=== PATIENT | female | born 1955 | race Caucasian/White ===

== ENCOUNTER 2018-07-18 11:08 | Inpatient (IN) | payer BC ==
--- NOTE | 2018-07-16 08:50 | HPE ---
DATE OF PROPOSED ADMISSION: 07/18/2018 ATTENDING PHYSICIAN: Dr. Moura. CHIEF COMPLAINT: Pain and numbness her right upper extremity with gait disturbance, cervical myelopathy. HISTORY: This is a pleasant 62-year-old female patient who presents today for history and physical for her ongoing symptoms secondary to a fall in February. She sustained a fall, developed pain and numbness in the right upper extremity, gait disturbance and was noted on MRI to have cervical myelopathy. She failed to improve with conservative management. She was seen and evaluated by Dr. Moura who elected for surgery for her persistent symptoms. She has consented for anterior cervical decompression at C4-5 and C5-6 with a partial corpectomy at C5-6. Her MRI is consistent with cervical myelopathy and severe spinal stenosis at 4-5, and lesser degree of stenosis at 5-6 with foraminal stenosis minimally at 6-7. X-rays notable for multilevel degenerative changes with loss of disc height most notably at C4-5 and 5-6 some decreased disc space at 6-7. ALLERGIES: No true known current drug allergies. With kt inhibitors she does have a cough and bloating. CURRENT MEDICATIONS: - amlodipine 5 mg one tablet once per day - Lasix 20 mg one to two tablets as needed - irbesartan 300 mg one tablet once per day - metoprolol extended release 100 mg one tablet once per day - pravastatin 40 mg one tablet once per day - Tricor 145 mg one tablet once per day PAST SURGICAL HISTORY: Colonoscopy done in 2008. She also had a hysterectomy and a partial removal of her ovaries. MEDICAL CONDITIONS INCLUDE: Cervical spinal stenosis C4-5 and C5-6. Numbness in the right upper extremity. Gait disturbance. Hypertension. Elevated cholesterol. Psoriasis. FAMILY HISTORY: Noncontributory. SOCIAL HISTORY: She does not smoke. She occasionally uses alcohol. REVIEW OF SYSTEMS: Denies fever or chills. Denies chest pain, shortness of breath or cough. Denies difficulty breathing. Denies abdominal pain. Denies nausea or vomiting. Has persistent pain radiating to the right upper extremities, difficulty with ambulation. She has had some overflow incontinence noted over the last four or five months or so. No fecal incontinence. No urinary retention. PHYSICAL EXAM TODAY: Reveals an alert female patient. She ambulates with the use of a quad cane. Mood and affect appropriate for this situation. Neck is supple without adenopathy. Lungs are clear to auscultation without rales or wheeze. Heart: Regular rate and rhythm. Abdomen: Bowel sounds are tender. Examination of the cervical spine reveals no tenderness along the posterior aspect of the cervical spine. Spurling's is negative. Garcia's is positive bilaterally. There is notable weakness in the right upper extremity particularly in the biceps and triceps. There is three beats of clonus on the right, two beats of clonus on the left. Deep tendon reflexes are 2 at the right ankle, 1 at the left ankle, 3 at the knees bilaterally, 3+ at the right triceps, 1 at the left triceps, biceps are absent bilaterally, brachial radialis are absent bilaterally. Gait is 1 based on exam. CURRENT VITAL SIGNS: Blood pressure 132/80, respirations 19, pulse 54, height 5.7, weight 266 pounds, temperature 98.9. IMPRESSION: Cervical spinal stenosis most notably at C5-6, C4-5. Degenerative disc disease primarily at C4-5, C5-6 and C6-7 as well as cervical myelopathy at 4-5. PLAN: She has consented by Dr. Moura for an anterior cervical decompression and fusion at C4-5 and C5-6 with a partial corpectomy. We will use a donor bone graft and metal instrumentation. BENITA
[~2018-07-18] VITALS: Ht 172.7 cm; Wt 120.6 kg
[~2018-07-18 11:08] MED LIST: AMLO5TAB6 PO; BACITRACIN PWD 50,000 UNITS VIAL As Ordered ONE; BUPIVACAINE/EPIN 0.25% 30 ML VIAL As Ordered ONE; FENO145T13 PO; FURO20TA2 PO; GLYCOPYRROLATE INJ 0.2 MG/ML 2 ML VIAL As Ordered ONE; IRBE300T10 PO; LIDOCAINE 2% INJ 100 MG/5 ML SDV (FOR ANES.) As Ordered ONE; LIDOCAINE W/EPINEPHRINE 1% 20ML VIAL As Ordered ONE; METO1TAB33 PO; MIDAZOLAM INJ 2 MG/2 ML VIAL (J2250) As Ordered ONE; NEOSTIGMINE 10 MG/10 ML VIAL (J2710) As Ordered ONE; ONDANSETRON 4MG/2ML VIAL (J2405) As Ordered ONE; PRAV40TA2 PO; PROPOFOL 200 MG/20 ML VIAL As Ordered ONE; REMIFENTANIL 1MG 3ML VIAL As Ordered ONE; ROCURONIUM BROMIDE 50 MG/5 ML VIAL As Ordered ONE; THROMBIN SOLN 20,000 UNITS KIT As Ordered ONE; dexameTHASONE 4 MG/ML 1ML VIAL (J1100) As Ordered ONE; fentaNYL 100 MCG/2 ML INJECTION (J3010) As Ordered ONE
[2018-07-18 12:03] LABS: HEMATOCRIT 49.5 % (36.0-47.0); HEMOGLOBIN 16.3 g/dl (12.0-15.5); MEAN CORPUSCULAR HEMOGLOBIN 27.9 pg (27.0-33.0); MEAN CORPUSCULAR HGB CONC 32.9 g/dl (32.0-36.5); MEAN CORPUSCULAR VOLUME 84.6 fl (80.0-96.0); PLATELET COUNT, AUTOMATED 282 10^3/uL (150-450); RED BLOOD COUNT 5.85 10^6/uL (4.00-5.40); WHITE BLOOD COUNT 7.4 10^3/uL (4.0-10.0)
[2018-07-18] MEDS ORDERED: PERCOCET 5MG/325MG TAB As Ordered ONE (12:06)
[2018-07-18] MEDS ORDERED: ceFAZolin 2 GM/D5W 50 ML IV BAG (J0690 PER 500MG) As Ordered ONE (12:07)
[2018-07-18] MEDS ORDERED: ceFAZolin 1GM INJ (J0690 PER 500MG) As Ordered ONE ×2 (12:07→12:08)
[2018-07-18] MEDS ORDERED: GABAPENTIN 300 MG CAP PO ONE (12:15)
[2018-07-18] MEDS ORDERED: PERCOCET 5MG/325MG TAB PO ONE (12:15)
[2018-07-18] MEDS ORDERED: ceFAZolin SOD 1 GM in D5W MINI-BAG PLUS 50 ML IV ONE (12:15)
[2018-07-18] MEDS ORDERED: LR 1,000 ML IV ONE (12:15)
[2018-07-18 12:30] LABS: BLOOD UREA NITROGEN 15 MG/DL (7-18); CALCIUM LEVEL 9.9 MG/DL (8.8-10.2); CARBON DIOXIDE LEVEL 29 MEQ/L (21-32); CHLORIDE LEVEL 103 MEQ/L (98-107); CREATININE FOR GFR 0.86 MG/DL (0.55-1.30); GLOMERULAR FILTRATION RATE > 60.0 (>45); GLUCOSE, FASTING 119 MG/DL (70-100); POTASSIUM SERUM 3.9 MEQ/L (3.5-5.1); SODIUM LEVEL 140 MEQ/L (136-145)
[2018-07-18] MEDS ORDERED: methylPREDNISolone 500 MG, VIAL MATE ADAPTER 1 EACH in D5W 250 ML IV ONE (12:30)
[2018-07-18] MEDS ORDERED: ROCURONIUM BROMIDE 50 MG/5 ML VIAL As Ordered ONE ×2 (15:01→17:16)
[2018-07-18] MEDS ORDERED: PHENYLephrine HCL 500 MCG/5 ML (100MCG/ML) SYRINGE (J2370) As Ordered ONE (15:02)
[2018-07-18] MEDS ORDERED: PHENYLEPHRINE INJ 10MG/ML VIAL (J2370) As Ordered ONE (15:02)
[2018-07-18] MEDS ORDERED: ePHEDrine SULFATE 25 MG/5 ML(5MG/ML) SYRINGE As Ordered ONE (15:02)
[2018-07-18] MEDS ORDERED: REMIFENTANIL 1MG 3ML VIAL As Ordered ONE ×2 (15:42→16:46)
[2018-07-18] MEDS ORDERED: LR 1,000 ML IV SCH (18:30)
[2018-07-18] MEDS ORDERED: ONDANSETRON 4MG/2ML VIAL (J2405) IV PRN (18:30)
[2018-07-18] MEDS ORDERED: PERCOCET 5MG/325MG TAB PO PRN ×3 (18:30→18:45)
[2018-07-18] MEDS ORDERED: HYDROMORPHONE HCL 0.5 MG/ 0.5 ML SYRINGE (J1170 PER 1) IV PRN ×2 (18:30→18:45)
[2018-07-18] MEDS: fentaNYL 100 MCG/2 ML INJECTION (J3010) IV PRN ×4 (18:36→19:04)
[2018-07-18] MEDS ORDERED: PROMETHAZINE INJ 25 MG/ML VIAL (J2550) IV PRN (18:45)
[2018-07-18] MEDS ORDERED: ACETAMINOPHEN TAB 650MG DOSE (2X325MG) PO PRN (18:45)
[2018-07-18 20:00] VITALS: BP 147/98
[2018-07-18 20:30] VITALS: BP 154/100
[2018-07-18 21:00] VITALS: BP 142/95; O2SAT 96
[2018-07-18] MEDS ORDERED: FENOFIBRATE 145 MG TAB (TRICOR) PO SCH (21:00)
[2018-07-18] MEDS ORDERED: PRAVASTATIN 20 MG TAB PO SCH (21:00)
[2018-07-18 22:00] VITALS: BP 142/96
[2018-07-18 23:00] VITALS: BP 147/94
[2018-07-18] MEDS: D5W/LR 1,000 ML IV SCH (23:01)
[2018-07-19] VITALS: BP 135/92
[2018-07-19 02:00] VITALS: BP 141/87
[2018-07-19] MEDS: D5W/LR 1,000 ML IV SCH (04:12)
[2018-07-19 06:00] VITALS: BP 137/83
[2018-07-19] MEDS ORDERED: PERC5TAB12 PO (06:34)
[2018-07-19 08:04] VITALS: BP 137/83
--- NOTE | 2018-07-19 08:23 | REP ---
CERVICAL SPINE, TWO VIEWS: HISTORY: Spinal stenosis. Two portable lateral radiographs were obtained. The first radiograph demonstrates a metal probe overlying the C5-6 intervertebral disc. The second radiograph demonstrates the patient to be status post C4 to C6 anterior spinal fusion. A fixation plate and bone graft material are present. There is anatomic alignment. IMPRESSION: The patient is status post C4 to C6 anterior spinal fusion. There is anatomic alignment. Electronically Signed by Cody Mckeon MD 07/19/2018 08:24 A
[2018-07-19] MEDS ORDERED: METAMUCIL (PSYLLIUM) PACKET PO SCH (09:00)
[2018-07-19] MEDS ORDERED: METOPROLOL SUCC (TopROL XL) 100MG *XL* TAB PO SCH (09:00)
[2018-07-19] MEDS ORDERED: FUROSEMIDE 20 MG TAB PO SCH (09:00)
[2018-07-19] MEDS ORDERED: amLODIPine 5 MG TAB PO SCH (09:00)
[2018-07-19] MEDS ORDERED: IRBESARTAN 150 MG TAB PO SCH (09:00)
--- NOTE | 2018-07-19 12:16 | RO ---
DATE OF PROCEDURE: 07/18/2018 PREOPERATIVE DIAGNOSIS: Cervical myelopathy secondary to cervical spinal stenosis at C4-5 and C5-6. POSTPROCEDURE DIAGNOSIS: Cervical myelopathy secondary to cervical spinal stenosis at C4-5 and C5-6. PROCEDURE: Partial corpectomy C4-5 and C5-6, including debridement of disk osteophyte core complex, partial corpectomy of the vertebral body to allow adequate decompression of her severely arthritic cervical spine, exposure of the thecal sac and decompression of thecal sac and nerve roots and removal of the posterior longitudinal ligament, as well as posterior vertebral body corpus to accomplish decompression of the cervical spinal stenosis causing myelopathy at C4-5, additional level at C5-6, cervical fusion at C4-5 and additional level at C5-6. Use of structural allograft for spine surgery at C4-5 and C5-6. The application of anterior cervical instrumentation C4, C5 and C6. A 22 modifier was applied to this procedure due to the patient's excessive BMI of 43.3 significantly increasing the time and difficulty of this procedure, time to complete the procedure increased by approximately 50% because of body mass index of 43.3, weight of 273 pounds. SURGEON: Dwight Moura MD [employer] ATTENDANT: JESSICA Tompkins ANESTHESIA: General endotracheal. ESTIMATED BLOOD LOSS: 30 mL, replaced with crystalloid. COMPLICATIONS: No complications. COMPONENTS UTILIZED: DePuy [place] plate size 28 mm, 15 and 14 mm screws and a single 14 mm rescue screw utilized at C6 level on the right, structural allograft size 5 x 7 at C4-5 and size 4 x 6 at C5-6. INDICATIONS: The patient has cervical myelopathy affecting the upper and lower extremities, effectively grade quadriparesis as a result of for cervical spinal stenosis and symptoms ongoing since February, including gait disturbance and weakness in the right lower extremity, as well as bilateral and predominantly right upper extremity findings. Consent reviewed in detail with the patient, including marge discussion of the pathology involved, the procedure proposed, alternatives, including doing nothing, fusion surgery at two additional levels, risks including but not limited to pain, failure, infection, paralysis, incomplete relief, need for more surgery, infection, hoarseness, swallowing trouble and other issues. The patient agreed to proceed. OPERATIVE COURSE: Identified in the holding area, site and side verified brought to the operating room. General endotracheal anesthesia was administered. She was positioned with a bump between the shoulder blades. Shoulders taped to the side, head halter traction with 7 pounds applied. Positioning and draped took significantly more time because of the patient's increased body habitus. The incision was outlined with a marking pen. Once I and the development trainer were comfortable with the patient's positioning, she was sterilely prepped and draped. The line of the incision was infiltrated with 1% lidocaine with epinephrine. I utilized 3.5 loupe magnification during the procedure. Mr. Jones stood on the patient's left and I stood on the patient's right for this right-sided approach. Incision was made with a 10 blade knife, developed down through skin, subcuticular tissues to the platysma musculature. The platysma was elevated and divided sharply using tenotomy scissors and bipolar cautery. The patient seemed to have significant fibrosis deep to the platysma muscle. This is likely associated with her body habitus and potentially reflux condition. This significantly contributory towards a long careful dissection. Next, the external jugular vein was exposed and tied off using #2-0 Vicryl. The vein was then divided. The omohyoid was identified. The sternocleidomastoid was identified. Dissection continued superior to the omohyoid. The carotid sheath was identified. Dissection continued medial to the carotid sheath. Anterior vertebral column was identified. Prevertebral fascia was elevated in several leaves exposing the disk osteophyte complexes at C4-5 and C5-6. Radiographically, there is complete collapse of the disk space at C4-5 and near complete collapse of the disk space at C5-6. A bayonet spinal needle was placed at the C5-6 level and a cross-table lateral x-ray was now taken to verify our level in position. Dissection continued. I utilized Bovie cautery to elevate the medial border of the longus coli musculature. I utilized [place] and [place] to remove large disk osteophyte complex in the anterior vertebral column and running into the longus coli musculature at both levels bilaterally. Next, I placed distraction pins at C4-5. I elected to do C4-5 as the first level because it was the most stenotic level where we appreciated significant myelopathy. Distraction pins were utilized to distract the vertebral bodies. Pituitaries were utilized to remove desiccated disk material at C4-5, this followed by the use of curved curettes to remove additional cartilaginous end plates, followed by the oval bur to remove the inferior corpus of C4 and superior corpus of C5 and to allow dissection to continue down to the uncinate processes and posterior longitudinal ligament, removing vertebral bony corpus from these areas. Next, once the posterior longitudinal ligament was exposed, Mr. Jones utilized suction while I utilized #1 and 2 Kerrisons, as well as curved curettes to remove the posterior longitudinal ligament at C4-5. There was significant disk material, especially bulging posterolaterally on the right side and this was removed using [place] pituitaries. Once this was accomplished, we inspected the partial corpectomy. I then utilized a 5 x 7 and a 6 x 8 rasp. We utilized a size 5 x 7 and 6 x [address] sound and elected to place a size 5 x 7 graft to avoid over distraction. Next, the 5.7 graft was obtained, soaked in bacitracin solution and then implanted and tamped into place. Next, distraction pin was removed at C4 and the shadow line retractor was then removed. Dissection continued exposing again C5-6. The shadow line retractor and distraction pin was placed at the C6 level and it distracted across C5-6. In a similar fashion, the additional level at C5-6 was approached removing disk material, cartilaginous endplates and inferior endplate, contouring of C5 was accomplished and superior endplate of C6, contouring debridement of uncinate processes of the vertebral body was accomplished. On the right at C5-6 level in the lateral recess, I did encounter significant free hard osteophyte and this was teased free with a curved curette and removed using the back of pituitary. With the posterior longitudinal ligament also removed using #1 and 2 Kerrisons, as well as curved curettes exposing the thecal sac. Once the C5-6 level was debrided and the thecal sac was exposed and the compression was verified, I then irrigated, utilized rasps a size 4 x 6, the rasp seemed to fit appropriately, a size 4 x 6 sound seemed to fit appropriately. We selected a size 4 x 6 graft and this graft was prepared by soaking in high con bacitracin solution and then implanted. Once the graft was tamped into place, Maximdee help to expose her using S retractors, and I utilized the oval bur to further contour the anterior vertebral body corpus, removing the large osteophyte formation of the anterior corpus at C5-C6 and C4 to allow flush placement of the anterior instrumentation. Next, I trialed a size 32 and a size 28 plate. The size 28 plate seemed to fit appropriately and I then fixed the plate to the anterior corpus of C4 and C6 . I verified the position of the plate and placed the remaining screws at C5. They were drilled with a 12 mm drill and the drill guide followed by placement. The inferior right C6 screw had a difficult purchase and I elected for a size 14 mm larger diameter rescue screw which fit appropriately and held bone. Next, all locking devices were engaged. Irrigation was accomplished. No active bleeding was appreciated. Next, at this stage, a cross-table lateral was taken to verify plate and graft placement. Next, once this was accomplished all retractors and had been removed, the patient's wound was closed in layer fashion, including the platysma, deep dermis and use of Dermabond on the skin wound. Next, she was then extubated and moved to the recovery room in good condition. Immediately in the recovery room, the patient was noted to have an improvement in her right arm symptoms, although she still had the persistent preexisting weakness in the right lower extremity from the cervical myelopathy. This patient was placed in postoperatively an [place] collar, which will be worn in the perioperative period. Next, Elliot Robert was present and participated in the entirety of this case. For further details, please refer to medical record.
--- NOTE | 2018-07-21 15:04 | DSES ---
DATE OF ADMISSION: 07/18/2018 DATE OF DISCHARGE: 07/19/2018 DISCHARGE DIAGNOSIS: Right upper extremity pain and weakness and lower extremity weakness secondary to cervical myelopathy status post anterior cervical decompression and fusion at C4-5 and C5-6 with partial corpectomy at C4-5 and C5-6. HISTORY: This is a pleasant, 62-year-old female with progressively worsening right upper extremity pain and weakness and lower extremity weakness due to cervical spinal stenosis. She had failed to improve with conservative treatment. She elected for surgery for her continued symptoms. PROCEDURE PERFORMED: Anterior cervical decompression and fusion (ACDF) C4-5 and C5-6 with partial corpectomy at C4-5 and C5-6. HOSPITAL COURSE: The patient was admitted on the day of surgery and underwent anterior cervical decompression and fusion at C4-5 and C5-6 with partial corpectomy at C4-5 and C5-6 that was without complications. Her hospital course was without complications. On the day of discharge, the patient was doing well. She was in an [place] collar, will use oral medications for pain control and she will resume preoperative medications and diet. She will also follow in 2 weeks in the office for wound check. Please refer to the medical record for further details.
== END 2018-07-19 10:50 | disposition home or self-care (01) | DRG 321 ==
LOC: M OR 11:26 → M MS5PR 19:35
PROVIDERS: ADMIT Orthopaedic Surgery; ATTEND Orthopaedic Surgery
PROC: 0RB30ZZ Excision of Cervical Vertebral Disc, Open Approach (ICD-10-PCS; 2018-07-18)
PROC: 0RG20K0 Fusion of 2 or more Cervical Vertebral Joints with Nonautologous Tissue Substitute, Anterior Approach, Anterior Column, Open Approach (ICD-10-PCS; principal; 2018-07-18 13:00)
DX: M50.021 Cervical disc disorder at C4-C5 level with myelopathy (principal); I10 Essential (primary) hypertension; M48.02 Spinal stenosis, cervical region; R26.89 Other abnormalities of gait and mobility; E78.2 Mixed hyperlipidemia; L40.9 Psoriasis, unspecified; R73.03 Prediabetes; M50.323 Other cervical disc degeneration at C6-C7 level; M50.322 Other cervical disc degeneration at C5-C6 level; M50.321 Other cervical disc degeneration at C4-C5 level; N39.490 Overflow incontinence; Z79.899 Other long term (current) drug therapy

== ENCOUNTER → 2018-09-30 | Outpatient (CLI) | payer BC ==
[~2018-09-30] MED LIST changes: -BACITRACIN PWD 50,000 UNITS VIAL As Ordered ONE; -BUPIVACAINE/EPIN 0.25% 30 ML VIAL As Ordered ONE; -GLYCOPYRROLATE INJ 0.2 MG/ML 2 ML VIAL As Ordered ONE; -LIDOCAINE 2% INJ 100 MG/5 ML SDV (FOR ANES.) As Ordered ONE; -LIDOCAINE W/EPINEPHRINE 1% 20ML VIAL As Ordered ONE; -MIDAZOLAM INJ 2 MG/2 ML VIAL (J2250) As Ordered ONE; -NEOSTIGMINE 10 MG/10 ML VIAL (J2710) As Ordered ONE; -ONDANSETRON 4MG/2ML VIAL (J2405) As Ordered ONE; +PERC5TAB12 PO; -PROPOFOL 200 MG/20 ML VIAL As Ordered ONE; -REMIFENTANIL 1MG 3ML VIAL As Ordered ONE; -ROCURONIUM BROMIDE 50 MG/5 ML VIAL As Ordered ONE; -THROMBIN SOLN 20,000 UNITS KIT As Ordered ONE; -dexameTHASONE 4 MG/ML 1ML VIAL (J1100) As Ordered ONE; -fentaNYL 100 MCG/2 ML INJECTION (J3010) As Ordered ONE
--- NOTE | 2018-09-30 14:57 | REP ---
BILATERAL LOWER EXTREMITY DUPLEX DOPPLER VENOUS ULTRASOUND WITH EVALUATION FOR VENOUS REFLUX: Real-time compression and duplex Doppler interrogation of the bilateral lower extremity deep venous systems is performed. Bilaterally, common femoral, superficial femoral and popliteal veins are fully compressible with transducer pressure and demonstrate normal spontaneous and phasic flow without evidence of deep venous thrombosis. Evaluation for venous reflux on the right does not demonstrate any evidence of reflux in the deep venous system. There is an anterior accessory greater saphenous vein present without reflux. There is no reflux in the portion of the greater saphenous vein, which measures 8 mm at the saphenofemoral junction, 5 mm at the mid thigh and 6 mm at the knee. There is no reflux in the lesser saphenous vein which measures 3 mm. Evaluation for venous reflux on the left demonstrates no evidence of reflux in the deep vein system. There is an anterior accessory greater saphenous vein present without reflux. There is no reflux in any portion of the greater saphenous vein, which measures 8 mm at the saphenofemoral junction and 5 mm at the mid thigh and knee. Lesser saphenous vein measures 3 mm without reflux. Electronically Signed by Adalid Ramey MD 09/30/2018 04:19 P
== END ==
LOC: M RAD 09:51
PROVIDERS: ATTEND Surgery Vascular Surgery
DX: I83.893 Varicose veins of bilateral lower extremities with other complications (principal)

== ENCOUNTER → 2018-10-16 | Outpatient (CLI) | payer BC ==
--- NOTE | 2018-10-16 11:21 | REP ---
Bilateral lower extremity arterial Doppler ultrasound: History: Peripheral vascular disease. Findings: Ankle brachial indices could not be obtained due to noncompressible vessels bilaterally. A premature ventricular contraction is recorded on the left superficial femoral artery tracing. There is no evidence of significant stenosis on either side. Right lower extremity arterial Doppler velocity chart: CF A 130 cm/S Profunda 56 Proximal SFA 133 Mid SFA 127 Distal SFA 123 Popliteal 61 Proximal AT A 56 Tibioperoneal trunk 77 Proximal ASSISTANT MANAGER QUALITY MANAGEMENT 58 Distal ASSISTANT MANAGER QUALITY MANAGEMENT 86 Distal AT A 86 Left lower extremity arterial Doppler velocity chart: CF A 110 Profunda 65 Proximal SFA 151 Mid SFA 131 Distal SFA 128 Popliteal 64 Proximal AT A 48 Tibioperoneal trunk 96 Proximal ASSISTANT MANAGER QUALITY MANAGEMENT 109 Distal ASSISTANT MANAGER QUALITY MANAGEMENT 77 Distal AT A 60 Electronically Signed by Iglesia Yusuf MD 10/16/2018 11:12 A
== END ==
LOC: M RAD 08:55
PROVIDERS: ATTEND Surgery Vascular Surgery
DX: I73.9 Peripheral vascular disease, unspecified (principal)